=== PATIENT | female | born 1995 | race African-American/Black ===

== ENCOUNTER 2024-09-01 14:13 | Emergency (ER) | payer MEDICAID ==
[~2024-09-01] VITALS: Ht 160 cm; Wt 86.2 kg
[2024-09-01 14:27] VITALS: TEMP 37; O2SAT 98
[2024-09-01] MEDS ORDERED: BO1 TP (18:42)
[2024-09-01 19:15] VITALS: BP 117/84; PULSE 69; RESP 18; O2SAT 100
== END 2024-09-01 19:17 | disposition home or self-care (01) ==
LOC: ER 14:13
DX: N93.9 Abnormal uterine and vaginal bleeding, unspecified (principal); Z98.890 Other specified postprocedural states; Z79.899 Other long term (current) drug therapy
CPT/HCPCS: 99284